=== PATIENT | female | born 1995 | race Caucasian/White ===

== ENCOUNTER 2019-04-29 09:00 | Outpatient (RCR) | payer OTHER, SELFPAY ==
--- NOTE | 2018-10-31 15:39 | HP.PTEVAL_ITS ---
Patient's Visit Information RAFAT MCCAULEY is a 22 year old F referred to Physical Therapy by ADAMA LUKE with a diagnosis of S/P ACL RECONSTRUCTION. Date of Evaluation: 10/31/18 Physical Therapist: Gwendolyn Castillo PT, Cert MDT - Visit Plan Frequency: 2x /Week Duration: 6 Weeks Plan: LEFT KNEE REHAB S/P ACL RECONSTRUCTION ON 10/15/18 PER PROTOCOL. - Subjective Findings: Work/Leisure: UNEMPLOYEED. 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 Present symptoms: RIGHT KNEE PAIN AND SWELLING. TIGHTNESS AND WEAKNESS IN LLE. CALF GETS TIGHT. Present since: RE-INJURY September. Pain Scale: WORST 5/10, LEAST 0/10. Currently: 0/10. Commenced as a result of: HYPEREXTENSION AND POPPING LEFT KNEE RUNNING WHILE PLAYING SOFTBALL. Worse: BEING UP ON IT TOO MUCH. Better: REST, ICE AND ELEVATION. Disturbed sleep: YES. Previous history/Previous treatment: JUN [address] CASTREJON. FULL RECOVERY. Gait: PATIENT REPORTS HER LEFT LEG FEELS TOO UNSTABLE TO BEAR FULL WEIGHT ON RIGHT NOW. Unexplained weight loss: NO. Imaging: NO IMAGING SINCE SURGERY. PMH: UNREMARKABLE. PLOF (Prior Level of Function): UNLIMITED. OTHER: PATIENT REPORTS SHE WAS TOLD LAST WEEK THAT SHE COULD BE WEIGHT BEARING TOLERATED AND GET RID OF CRUTCHES WHEN READY NOW. PATIENT REPORTS SHE HAS NOT BEARED FULL WEIGHT ON IT YET. CHEST PAIN STARTED SATURDAY FOR NO APPARENT REASON OTHER THAN USING CRUTCHES AND GOING UP AND DOWN STAIRS. IT DOESN'T HURT WITH BREATHING JUST WHEN SHE MOVES. PATIENT REPORTS THE DOCTOR UNLOCKED HER BRACE AT THE LAST VISIT AND TOLD HER SHE CAN BEND IT MUCH SHE CAN EXCEPT TO LOCK BRACE AT NIGHT. FOLLOW SCHEDULED WITH SURGEON 11/24/18 - Objective THIS PATIENT AMBULATES INDEP'LY INTO PT TDWB TO PWB ON LLE WITH BAKARI AXILLARY CRUTCHES THAT ARE TOO SHORT. PATIENT LET ME RAISE CRUTCHES ONE NOTCH BUT UNCOMFORTABLE WITH THEM BEING RAISED FURTHER TO PROPER HEIGHT. SHE IS USING HEEL STRIKE, FOOT FLAT AND TOE OFF PHASES OF GAIT AND WITH TRAINING NEARLY ABLE TO FULL WEIGHT BEAR ON LLE WITH CRUTCHES WALKING AND AT TABLE WITHOUT CRUTCHES WEIGHT SHIFTING LATERALLY AND FORWARD. SHE IS ABLE TO DON AND DOFF BRACE INDEP'LY. INCISIONS LOOK GOOD WITHOUT ANY SIGNS OF INFECTION. BRACE IS UNLOCKED AND PATIENTS LEFT KNEE ROM IN SUPINE WITH A HEEL SLIDE = -6 DEG EXT TO 90 DEG FLEXION. GIRTH MEASUREMENTS: 6 ABOVE PATELLA = 50.5 CM, PATELLA = 39 AND 6 BELOW PATELLA = 34 CM. RIGHT LE ROM AND STRENGTH WFL. LLE STRENGTH: HIP 3+/5, KNEE EXT 3-/5, KNEE FLEX 3-/5, ANKLE 5/5. HEP: PATIENT HAS ALREADY STARTED QUAD SETS AND SLR'S AT HOME. ADDED HEEL SLIDES, STANDING HIP EXT, STANDING HIP ABD, LATERAL WEIGHT SHIFTING AND FORWARD WEIGHT SHIFTING TO HEP. THIS PT RECOMMENDED PATIENTS MOM REPORT CHEST PAIN TO DOCTORS OFFICE. MOM AGREEABLE. - Goals Goal 1:: INDEP AND SAFE WITH GAIT ON ALL SURFACES WITH LEAST ASSISTIVE DEVICE Goal Time Frame: 4-6 Weeks Goal 2:: DECREASE LEFT LE EDEMA Goal Time Frame: 4-6 Weeks Goal 3:: INCREASE FUNCTIONAL ROM OF LLE TO EASE ADL'S Goal Time Frame: 4-6 Weeks Goal 4:: INCREASE FUNCTIONAL STRENGTH LLE TO EASE ADL'S Goal Time Frame: 4-6 Weeks Goal 5:: INDEP HEP Goal Time Frame: 4-6 Weeks - Rehabilitation Potential Rehabilitation Potential: Good - Anticipated Interventions Patient/Client Instruction: Educate patient on: Condition, Plan of Care, Risk Factors, Benefits of Fitness Program For the Purpose of:: To improve self management Therapeutic Exercise to Include: Strength training, Endurance training, Balance training, Coordination, Agility training, Flexibilty training, Gait and locomotor training, Neuromotor development For the Purpose of:: To increase ROM, To improve muscle performance and motor function, To increase tolerance to activity/condition/position, To improve ability of physical actions for home/community/work/leisure, To improve gait and locomotor functions, To prevent re-injury Functional Training to Include: Functional sports training, Gait training For the Purpose of:: To increase tolerance to activity/condition/position, To improve ability of physical actions for home/community/work/leisure, To improve gait and locomotor functions Cryotherapy (ice pack, ice massage): Yes For the Purpose of:: To decrease pain, To decrease swelling/inflammation Thank you for the opportunity to evaluate your patient. For Medicare and Medicare HMO plans, please review the plan of care and approve it. It will need to be FAXED BACK to us at [phone] for Medicare purposes. For Medicare only, by signing this I certify the plan of care. Please let me know if there are questions or concerns regarding this plan of care. Physician Signature: Date:
--- NOTE | 2018-12-09 15:58 | HP.PTREVAL ---
ADAMA LUKE, It has been my pleasure to treat RAFAT MCCAULEY over the last 12 visits for S/P ACL RECONSTRUCTION. Please see the progress note below for an update on the physical therapy plan of care! Subjective: Patient reports that the knee is good. 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 She does still have some sharps/shooting pains above the medial scar- does lock up sometimes. She is on her feet all the time. Sleep: no problems. Return to school- January 21- . Goes back to MD on the . 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 Does have a little hyperextension on uneven terrain at work. Objective/Function: Gait: no deviation noted. ROM: Left: 0-130 degrees Right: 0-135 degrees. Girth: Left: 55.5 cm, Right: 57 cm. Strength: Left flexion: 33.5, 31.9, 31.1 Left extn: 51.9, 54.6, 58.9 Right flexion: 46.2, 53.3, 46.9, Right Extn: 72.2, 76.1, 69.8 Plan Plan: Continue 2x a week Goals Goal 1:: INDEP AND SAFE WITH GAIT ON ALL SURFACES WITH LEAST ASSISTIVE DEVICE Goal Time Frame: 4-6 Weeks Goal Progress: Goal Met Goal 2:: DECREASE LEFT LE EDEMA Goal Time Frame: 4-6 Weeks Goal Progress: Progressing Goal 3:: INCREASE FUNCTIONAL ROM OF LLE TO EASE ADL'S Goal Time Frame: 4-6 Weeks Goal Progress: Progressing Goal 4:: INCREASE FUNCTIONAL STRENGTH LLE TO EASE ADL'S Goal Time Frame: 4-6 Weeks Goal Progress: Progressing Goal 5:: INDEP HEP Goal Time Frame: 4-6 Weeks Goal Progress: Progressing Anticipated Interventions Patient/Client Instruction: Educate patient on: Condition, Plan of Care, Risk Factors, Benefits of Fitness Program For the Purpose of:: To improve self management Therapeutic Exercise to Include: Strength training, Endurance training, Balance training, Coordination, Agility training, Flexibilty training, Gait and locomotor training, Neuromotor development For the Purpose of:: To increase ROM, To improve muscle performance and motor function, To increase tolerance to activity/condition/position, To improve ability of physical actions for home/community/work/leisure, To improve gait and locomotor functions, To prevent re-injury Functional Training to Include: Functional sports training, Gait training For the Purpose of:: To increase tolerance to activity/condition/position, To improve ability of physical actions for home/community/work/leisure, To improve gait and locomotor functions Cryotherapy (ice pack, ice massage): Yes For the Purpose of:: To decrease pain, To decrease swelling/inflammation Please do not hesitate to contact me at [phone] by phone or if you have questions or concerns regarding this new plan of care! Sincerely, GINNA GarciaT
== END 2019-04-29 19:00 | disposition home or self-care (01) ==
LOC: PT 09:00
PROVIDERS: Family Provider Pediatrics; PCP Pediatrics
DX: Z98.890 Other specified postprocedural states (principal)
CPT/HCPCS: 97110; 97161; 97164; 97530

== ENCOUNTER 2019-06-12 12:00 | Outpatient (RCR) | payer OTHER, SELFPAY ==
[2017-04-07 08:47] VITALS: BMI 29.2
--- NOTE | 2019-10-13 11:24 | HP.PT.NRP ---
RAFAT MONTEJO GARRICK was seen in my office for initial evaluation on . The following Plan of Care was established for this patient: This patient was last seen in our office . Pertinent comments regarding their Physical therapy will appear below: At this point I will be discontinuing this patient from physical therapy. I would be happy to see this patient again in the future if found appropriate by the physician. Thank you! GINNA GarciaT
== END 2019-06-12 19:00 | disposition home or self-care (01) ==
LOC: PT 12:00
PROVIDERS: Family Provider Pediatrics; PCP Pediatrics; Referring Provider Pediatrics; Visit Provider Pediatrics
DX: Z98.890 Other specified postprocedural states (principal)
CPT/HCPCS: 97110; 97164

== ENCOUNTER → 2019-08-25 15:22 | Outpatient (CLI) | payer OTHER, SELFPAY ==
[2017-04-07 08:47] VITALS: BMI 29.2
--- NOTE | 2019-08-25 15:28 | RAD_ITS ---
STUDY: X-RAY - LEFT ANKLE REASON FOR EXAM: Female, 23 years old. ROLLED ANKLE X4 WEEKS AGO, STILL HAVING PAIN TECHNIQUE: 3 view(s) of the ankle. COMPARISON: None. FINDINGS: Normal visualized distal tibia and fibula. Normal medial and lateral malleoli. Normal tibiotalar articulation and ankle mortise. Normal visualized talus and calcaneus. The visualized subtalar, talonavicular, calcaneocuboid and tarsal articulations are normal. The soft tissue structures are unremarkable. RAD/Ankle min 3 Views IMPRESSION: Normal x-ray examination of the ankle. Electronically Signed: Adriano Sung, at 15:57 EDT , Service support ,
== END ==
PROVIDERS: PCP Pediatrics; Referring Provider Family Medicine; Visit Provider Family Medicine
DX: M25.572 Pain in left ankle and joints of left foot (principal)
CPT/HCPCS: 73610